=== PATIENT | female | born 2000 | race Caucasian/White ===

== ENCOUNTER 2024-01-10 18:08 | Emergency (ER) | payer MEDICAID, OTHER ==
[~2024-01-10] VITALS: Ht 175.3 cm; Wt 104.0 kg
[2024-01-10 18:14] VITALS: TEMP 99; O2SAT 98
[2024-01-10] MEDS: DEXAMETHASONE 10 MG/ML VIAL PO ONE (18:30)
[2024-01-10 19:00] VITALS: BP 130/87; PULSE 102; RESP 20
[2024-01-10] MEDS: KETOROLAC 30MG/ML VIAL IM ONE (19:00)
[2024-01-10] MEDS ORDERED: IBUP-2028 MT (19:15)
[2024-01-10] MEDS ORDERED: ACET-2708 MT (19:15)
[2024-01-10 20:27] LABS: HCG SCREEN NEGATIVE
[2024-01-10 20:32] LABS: MONOTEST NEGATIVE (NEGATIVE)
[2024-01-10] MEDS ORDERED: AMOX1TAB16 MT (20:41)
== END 2024-01-10 20:38 | disposition home or self-care (01) ==
LOC: ER 18:08
DX: J02.0 Streptococcal pharyngitis (principal)
CPT/HCPCS: 84703; 87430; 86308; 96372; 99283; J1100; J1885; Z7610